=== PATIENT | female | born 1980 | race Caucasian/White ===

== ENCOUNTER → 2020-06-20 | Day surgery (SDC) | payer OTHER ==
[~2020-06-20] MED LIST: Bupivacaine 0.5%/EPINEPHrine 1:200,000 50 ML MDV ONE; Dexamethasone 4 MG/ML SDV ONE; Glycopyrrolate 0.2 MG/ML SDV ONE; Lactated Ringers 1,000 ML IV SCH; Lidocaine 1% 4 ML ONE; Lidocaine 1%/Sod Bicarbonate in NS 8.4% 1 ML Syringe IDERM PRN; Propofol 200 MG/20 ML SDV ONE; Sodium Chloride 0.9% 10 ML Syringe FLUSH PRN; diphenhydrAMINE 50 MG/ML SDV ONE; fentaNYL 100 MCG/2 ML SDV ONE
--- NOTE | 2020-06-20 11:45 | PCM.PRNOTE ---
- Free Text/Narrative Note: Date: 06/20/2020 Procedure: screening colonoscopy Endoscopist: Lokesh Galindo MD Findings: excellent prep. No polyps identified. Perhaps mild proctitis though I suspect what looked inflamed was related to minor scope trauma. Small anterior external hemorrhoid. Detailed Report: The patient was taken to the endoscopy suite and placed in left lateral decubitus position. Time out was performed and monitored anesthesia care initiated. Anus appeared normal except for a small anterior external hemorrhoid. Digital exam unremarkable. The colonoscope was inserted and advanced to the cecum. The appendiceal orifice was visualized. Prep was excellent. The scope was slowly withdrawn and mucosal surfaces carefully inspected. No polyps were identified. There appeared to be minor mucosal hyperemia at the distal sigmoid and rectum which looked more to be from scope trauma than anything else, but given history a sample of rectal mucosa was obtained with biopsy forceps. No significant hemorrhoidal disease appreciated. Air was suctioned prior to withdrawal of the scope. The patient tolerated this procedure well. Next, the small anterior external hemorrhoid was anesthetized with 5 cc 1% lidocaine with epinpehrine. Scissors were used to excise the hemorrhoid and overlying anoderm. Bleeding was minor and controlled with monopolar energy. The specimen was sent for pathology. The wound was closed with a single interrupted chronic gut suture, dressed with vasoline gauze, dry gauze and mesh panties.
--- NOTE | 2020-06-20 11:52 | PCM.PREANE ---
Preanesthetic Assessment - Procedure Proposed Procedure: Diagnostic Colonoscopy and Excision of external hemorrhoidal skin tag - Anesthesia/Transfusion/Family Hx Anesthesia History: Prior Anesthesia Without Reaction Family History of Anesthesia Reaction: No - Review of Systems General: No Symptoms Pulmonary: No Symptoms Cardiovascular: No Symptoms Gastrointestinal: No Symptoms Neurological: No Symptoms Other: Reports: Sinus Problem (Allergic Rhinitis, takes daily medications to control year round. ) - Physical Assessment NPO Status Date: 06/19/20 NPO Status Time: 18:00 Vital Signs: Last Vital Signs Temp 36.1 C 06/20/20 11:38 Pulse 61 06/20/20 11:38 Resp 12 06/20/20 11:38 BP 91/46 L 06/20/20 11:38 Pulse Ox 90 L 06/20/20 11:38 Height: 1.68 m Weight: 73.9 kg ASA Class: 2 Mental Status: Alert & Oriented x3 Airway Class: Mallampati = 2 Dentition: Reports: Normal Dentition Thyro-Mental Finger Breadths: 3 Mouth Opening Finger Breadths: 3 ROM/Head Extension: Full Lungs: Clear to Auscultation, Normal Respiratory Effort Cardiovascular: Regular Rate, Regular Rhythm - Allergies Allergies/Adverse Reactions: Allergies Allergy/AdvReac Type Severity Reaction Status Date / Time cat dander Allergy Anaphylactic Verified 06/20/20 10:12 Shock - Anesthesia Plan Pre-Op Medication Ordered: Other (Diphenhydramine 25 mg IV ) - Acknowledgements Anesthesia Type Planned: MAC Pt an Appropriate Candidate for the Planned Anesthesia: Yes Alternatives and Risks of Anesthesia Discussed w Pt/Guardian: Yes Pt/Guardian Understands and Agrees with Anesthesia Plan: Yes PreAnesthesia Questionnaire HEENT History: Reports: Allergic Rhinitis Cardiovascular History: Reports: None Respiratory History: Reports: Asthma Gastrointestinal History: Reports: None Genitourinary History: Reports: Other (See Below) Other Genitourinary History: dysuria 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 (See Below) Other OB/BYN History: abnormal uterine bleeding, menorrhagia, pelvic floor relaxation Musculoskeletal History: Reports: Other (See Below) Other Musculoskeletal History: right rib pain Neurological History: Reports: Other (See Below) Other Neuro History: dizziness, left sciatic pain Psychiatric History: Reports: Anxiety, Depression Endocrine/Metabolic History: Reports: None Hematologic History: Reports: None Immunologic History: Reports: None Oncologic (Cancer) History: Reports: None Dermatologic History: Reports: Other (See Below) Other Dermatologic History: hair loss - Infectious Disease History Infectious Disease History: Reports: None - Past Surgical History Head Surgeries/Procedures: Reports: None HEENT Surgical History: Reports: Naso-Sinus Surgery Cardiovascular Surgical History: Reports: None Respiratory Surgical History: Reports: None GI Surgical History: Reports: Colonoscopy Endocrine Surgical History: Reports: None Neurological Surgical History: Reports: None Musculoskeletal Surgical History: Reports: None Oncologic Surgical History: Reports: None - SUBSTANCE USE Tobacco Use Status *Q: Never Tobacco User Recreational Drug Use History: No - HOME MEDS Home Medications: Home Meds ALPRAZolam [Xanax] 0.5 - 1 mg PO DAILY PRN 06/19/20 [History] Albuterol Sulfate [Albuterol Sulfate HFA] 1 - 2 puff INH Q4H PRN 06/19/20 [History] Aspirin [Nabeel Chewable Aspirin] 81 mg PO DAILY 06/19/20 [History] Biotin 1 mg PO DAILY 06/19/20 [History] Cetirizine HCl [Zyrtec] 10 mg PO DAILY 06/19/20 [History] Cholecalciferol (Vitamin D3) [Vitamin D3] 2,000 unit PO DAILY 06/19/20 [History] Cyanocobalamin (Vitamin B-12) [Vitamin B-12] 1,000 mcg PO DAILY 06/19/20 [History] FLUoxetine [PROzac] 40 mg PO DAILY 06/19/20 [History] Ibuprofen 800 mg PO TID PRN 06/19/20 [History] Krill/[place]-3/Dha/Epa/Lipids [Krill Oil 300 mg Softgel] 1 cap PO DAILY 06/19/20 [History] Magnesium 250 mg PO DAILY 06/19/20 [History] Multivitamin 1 tab PO DAILY 06/19/20 [History] Phytonadione [Vitamin K] 100 mcg PO DAILY 06/19/20 [History] Vitamin A 2,400 mcg PO DAILY 06/19/20 [History] oxyCODONE 5 mg PO Q4H PRN #5 tab 06/20/20 [Rx] - CURRENT (IN HOUSE) MEDS Current Meds: Current Medications Lactated Ringer's (Ringers, Lactated) 1,000 mls @ 125 mls/hr IV ASDIRECTED RAFAEL Stop: 06/20/20 23:00 Last Admin: 06/20/20 09:50 Dose: 125 mls/hr Documented by: Lidocaine/Sodium Bicarbonate (Buffered Lidocaine 1% In Ns 8.4%) 0.25 ml IDERM ONETIME PRN PRN Reason: Prior to IV Start Stop: 06/20/20 18:00 Last Admin: 06/20/20 09:45 Dose: 0.25 ml Documented by: Sodium Chloride (Saline Flush) 10 ml FLUSH ASDIRECTED PRN PRN Reason: Keep Vein Open Stop: 06/20/20 18:00 Discontinued Medications Bupivacaine HCl/Epinephrine Bitart (Marcaine 0.5%/Epinephrine 1:200,000) Confirm Administered Dose 50 ml .ROUTE .STK-MED ONE Stop: 06/20/20 10:30 Dexamethasone (Decadron) Confirm Administered Dose 4 mg .ROUTE .STK-MED ONE Stop: 06/20/20 10:27 Dexamethasone (Decadron) Confirm Administered Dose 4 mg .ROUTE .STK-MED ONE Stop: 06/20/20 10:31 Diphenhydramine HCl (Benadryl) Confirm Administered Dose 50 mg .ROUTE .STK-MED ONE Stop: 06/20/20 10:30 Fentanyl (Sublimaze) Confirm Administered Dose 100 mcg .ROUTE .STK-MED ONE Stop: 06/20/20 10:28 Glycopyrrolate (Robinul) Confirm Administered Dose 0.2 mg .ROUTE .STK-MED ONE Stop: 06/20/20 10:47 Lidocaine HCl (Xylocaine-Mpf 1%) Confirm Administered Dose 4 mls @ as directed .ROUTE .STK-MED ONE Stop: 06/20/20 10:49 Propofol (Diprivan 20 Ml) Confirm Administered Dose 400 mg .ROUTE .STK-MED ONE Stop: 06/20/20 10:28 Propofol (Diprivan 20 Ml) Confirm Administered Dose 200 mg .ROUTE .STK-MED ONE Stop: 06/20/20 11:21
--- NOTE | 2020-06-20 11:53 | PCM48HPAN ---
Post Anesthesia Note - EVALUATION WITHIN 48HRS OF ANESTHETIC Vital Signs in Normal Range: Yes Patient Participated in Evaluation: Yes Respiratory Function Stable: Yes Airway Patent: Yes Cardiovascular Function Stable: Yes Hydration Status Stable: Yes Pain Control Satisfactory: Yes Nausea and Vomiting Control Satisfactory: Yes Mental Status Recovered: Yes Vital Signs: Last Vital Signs Temp 36.1 C 06/20/20 11:38 Pulse 61 06/20/20 11:38 Resp 12 06/20/20 11:38 BP 91/46 L 06/20/20 11:38 Pulse Ox 90 L 06/20/20 11:38 SP02 increased to 93% on room air, BP 100/57 with recheck. Mechel is comfortable and resting at this time.
== END | disposition home or self-care (01) ==
LOC: JD.SDS 09:24
PROVIDERS: ATTEND Surgery
DX: K62.89 Other specified diseases of anus and rectum (principal); K64.4 Residual hemorrhoidal skin tags; K52.9 Noninfective gastroenteritis and colitis, unspecified; J45.909 Unspecified asthma, uncomplicated; Z79.899 Other long term (current) drug therapy; Z98.890 Other specified postprocedural states; Z87.891 Personal history of nicotine dependence
CPT/HCPCS: 45380; 46999; J1100; J1200; J2704; J3010; J3490; J7120; 00811

== ENCOUNTER 2020-10-08 07:18 | Day surgery (SDC) | payer OTHER ==
--- NOTE | 2020-10-07 19:46 | PCM.PREANE ---
Preanesthetic Assessment - Procedure Proposed Procedure: Laparoscopic assisted vaginal hysterectomy, bilateral salpingectomy - Anesthesia/Transfusion/Family Hx Anesthesia History: Prior Anesthesia Without Reaction Family History of Anesthesia Reaction: No Transfusion History: No Prior Transfusion(s) Intubation History: Unknown - Review of Systems General: No Symptoms Pulmonary: No Symptoms Cardiovascular: No Symptoms Gastrointestinal: No Symptoms Neurological: No Symptoms Other: Reports: None - Physical Assessment NPO Status Date: 10/07/20 NPO Status Time: 21:30 Vital Signs: 139/66 67 99% RR 16 97.5 Height: 1.68 m Weight: 72.7 kg ASA Class: 2 Mental Status: Alert & Oriented x3 Airway Class: Mallampati = 2 Dentition: Reports: Normal Dentition Thyro-Mental Finger Breadths: 3 Mouth Opening Finger Breadths: 3 ROM/Head Extension: Full Lungs: Clear to Auscultation, Normal Respiratory Effort Cardiovascular: Regular Rate, Regular Rhythm - Lab Values: Labs reviewed and okay to proceed - Allergies Allergies/Adverse Reactions: Allergies Allergy/AdvReac Type Severity Reaction Status Date / Time cat dander Allergy Anaphylactic Verified 06/20/20 10:12 Shock - Blood Blood Available: Yes Product(s) Available: PRBC - Anesthesia Plan Pre-Op Medication Ordered: None - Acknowledgements Anesthesia Type Planned: General Anesthesia Pt an Appropriate Candidate for the Planned Anesthesia: Yes Alternatives and Risks of Anesthesia Discussed w Pt/Guardian: Yes Pt/Guardian Understands and Agrees with Anesthesia Plan: Yes PreAnesthesia Questionnaire HEENT History: Reports: Allergic Rhinitis Cardiovascular History: Reports: None Respiratory History: Reports: Asthma Gastrointestinal History: Reports: None Genitourinary History: Reports: Other (See Below) Other Genitourinary History: dysuria, stress incontinence 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 (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) Other OB/BYN History: abnormal uterine bleeding, menorrhagia, pelvic floor relaxation Musculoskeletal History: Reports: Other (See Below) Other Musculoskeletal History: right rib pain (resolved) Neurological History: Reports: Other (See Below) Other Neuro History: dizziness, left sciatic pain (resolved) Psychiatric History: Reports: Anxiety, Depression Endocrine/Metabolic History: Reports: None Hematologic History: Reports: None Immunologic History: Reports: None Oncologic (Cancer) History: Reports: None Dermatologic History: Reports: Other (See Below) Other Dermatologic History: hair loss - Infectious Disease History Infectious Disease History: Reports: None - Past Surgical History Head Surgeries/Procedures: Reports: None HEENT Surgical History: Reports: Naso-Sinus Surgery Cardiovascular Surgical History: Reports: None Respiratory Surgical History: Reports: None GI Surgical History: Reports: Colonoscopy Other GI Surgeries/Procedures: Hemorroidectomy Endocrine Surgical History: Reports: None Neurological Surgical History: Reports: None Musculoskeletal Surgical History: Reports: None Oncologic Surgical History: Reports: None - SUBSTANCE USE Tobacco Use Status *Q: Former Tobacco User Tobacco Use Within Last Twelve Months: Cigarettes Other Tobacco Use Within Last Twelve Months: quit 5 years ago Days Per Week of Alcohol Use: 3 Number of Drinks Per Day: 2 Total Drinks Per Week: 6 Recreational Drug Use History: No - HOME MEDS Home Medications: Home Meds ALPRAZolam [Xanax] 0.5 - 1 mg PO DAILY PRN 06/19/20 [History] Albuterol Sulfate [Albuterol Sulfate HFA] 1 - 2 puff INH Q4H PRN 06/19/20 [History] Aspirin [Nabeel Chewable Aspirin] 81 mg PO DAILY 06/19/20 [History] Biotin 1 mg PO DAILY 06/19/20 [History] Cetirizine HCl [Zyrtec] 10 mg PO DAILY 06/19/20 [History] Cholecalciferol (Vitamin D3) [Vitamin D3] 2,000 unit PO DAILY 06/19/20 [History] Cyanocobalamin (Vitamin B-12) [Vitamin B-12] 1,000 mcg PO DAILY 06/19/20 [History] FLUoxetine [PROzac] 40 mg PO DAILY 06/19/20 [History] Ibuprofen 800 mg PO TID PRN 06/19/20 [History] Krill/[place]-3/Dha/Epa/Lipids [Krill Oil 300 mg Softgel] 1 cap PO DAILY 06/19/20 [History] Magnesium 250 mg PO DAILY 06/19/20 [History] Multivitamin 1 tab PO DAILY 06/19/20 [History] - CURRENT (IN HOUSE) MEDS Current Meds: Current Medications Albuterol (Albuterol 0.083% 2.5 Mg/3 Ml Neb Soln) 2.5 mg NEB ONETIME PRN PRN Reason: asthma/preoperative Stop: 10/08/20 18:00 Lactated Ringer's (Ringers, Lactated) 1,000 mls @ 125 mls/hr IV ASDIRECTED RAFAEL Stop: 10/08/20 23:00 Lidocaine/Sodium Bicarbonate (Lidocaine 1%/Sod Bicarbonate In Ns 8.4% 1 Ml Syringe) 0.25 ml IDERM ONETIME PRN PRN Reason: Prior to IV Start Stop: 10/08/20 18:00 Sodium Chloride (Sodium Chloride 0.9% 10 Ml Syringe) 10 ml FLUSH ASDIRECTED PRN PRN Reason: Keep Vein Open Stop: 10/08/20 18:00
[~2020-10-08 07:18] MED LIST changes: +Albuterol 0.083% 2.5 MG/3 ML Neb Soln NEB PRN; -Bupivacaine 0.5%/EPINEPHrine 1:200,000 50 ML MDV ONE; +Dexamethasone 4 MG/ML 5 ML MDV ONE; -Dexamethasone 4 MG/ML SDV ONE; -Glycopyrrolate 0.2 MG/ML SDV ONE; -Lactated Ringers 1,000 ML IV SCH; -Lidocaine 1% 4 ML ONE; +Midazolam 1 MG/ML 2 ML SDV ONE; +Ondansetron 4 MG/2 ML SDV ONE; +Rocuronium 50 MG/5 ML Vial ONE; +ceFAZolin 1 GM Vial ONE; -diphenhydrAMINE 50 MG/ML SDV ONE; -fentaNYL 100 MCG/2 ML SDV ONE; +fentaNYL 250 MCG/5 ML SDV ONE
[2020-10-08] MEDS ORDERED: Bupivacaine 0.5% 30 ML SDV ONE (07:23)
[2020-10-08] MEDS ORDERED: Lidocaine 1% with EPINEPHrine 1:100,000 10 ML MDV ONE (07:23)
[2020-10-08] MEDS ORDERED: Sodium Chloride 0.9% 50 ML SDV ONE (07:23)
[2020-10-08] MEDS: Lactated Ringers 1,000 ML IV SCH ×2 (07:35→12:07)
[2020-10-08] MEDS ORDERED: Lactated Ringers 1,000 ML ONE (09:15)
[2020-10-08] MEDS ORDERED: ePHEDrine 50 MG/ML SDV ONE (09:31)
[2020-10-08] MEDS ORDERED: Glycopyrrolate 0.2 MG/ML SDV ONE ×2 (09:36→09:59)
[2020-10-08] MEDS ORDERED: Rocuronium 50 MG/5 ML Vial ONE (09:49)
[2020-10-08] MEDS ORDERED: Ketorolac 30 MG/ML SDV ONE (09:52)
[2020-10-08] MEDS ORDERED: Albuterol 6.7 GM Inhaler INH ONE (10:15)
[2020-10-08] MEDS ORDERED: HYDROmorphone 0.5 MG/0.5 ML Syringe ONE (10:36)
--- NOTE | 2020-10-08 10:58 | PCM.OPNOTE ---
- General Post-Op/Procedure Note Date of Surgery/Procedure: 10/08/20 Operative Procedure(s): Laparoscopic-assisted vaginal hysterectomy with bilateral salpingectomy Findings: Normal-appearing ovaries and tubes bilaterally. Uterus grossly normal in appearance with clear endometriosis lesions on the posterior lower uterine segment. Small amount of adhesions of the left broad ligament to the left posterior portion of the uterus. Normal-appearing liver, gallbladder, appendix and visualized portions of the intestines. Pre Op Diagnosis: Menorrhagia, dysmenorrhea, uterine fibroid Post-Op Diagnosis: Same Anesthesia Technique: General ET Tube Primary Surgeon: Jurgen Neal Anesthesia Provider: Ambar Abbott Supervisor Of Research: Arun Aj Reason Supervisor Of Research Was Necessary: Patient safety and reduction of morbidity and mortality Role of Supervisor Of Research: Use of laparoscopic instruments for portions of the case. Retraction for visualization. Pathology: Cervix, uterus and bilateral fallopian tubes Fluid Replacement, Intraop: 1,800 Output, Urine Amount: 400 EBL in mLs: 250 Complications: None Condition: Good Free Text/Narrative:: The patient was seen in the preoperative holding area and risks, benefits, indications, and alternatives of the procedure were reviewed with the patient and she desired to proceed with a laparoscopic assisted vaginal hysterectomy, bilateral salpingectomy, possible unilateral or bilateral salpingo-oophorectomy, possible ovarian cystectomy and possible total abdominal hysterectomy. Consents were reviewed. The patient was taken back to the OR and given general anesthesia with an endotracheal tube which was placed without difficulty. She was placed in dorsal lithotomy position using Yellofin stirrups. She was prepped and draped in normal sterile fashion. A Morales catheter was placed without difficulty. Attention was then turned to her umbilicus and it was injected with 0.5% Marcaine and a 5 mm stab incision was made with a scalpel and a Veress needle was then inserted through the incision. The gas was turned on, with an opening pressure of 5 mmHg. Pneumoperitoneum was continued until 15 mmHg pressure. A 5 mm trocar was then inserted under direct visualization through the incision without difficulty. Attention was then turned to the patient's right lower quadrant where an avascular space approximately intermediate between the ASIS and the umbilicus was identified. Local anesthetic was injected and a 5 mm incision was made with a scalpel. A 5 mm trocar was then inserted under direct visualization of the laparoscope. Attention was then turned to the left lower quadrant, where again an avascular portion of the abdominal wall was identified approximately intermediate between the ASIS and the umbilicus. Local anesthetic was injected and a scalpel was used to make a 5 mm incision. A 5 mm trocar was inserted under direct visualization with the laparoscope. Attention was then turned to the pelvis where the uterus was visualized and noted be normal in appearance with normal appearing bilateral fallopian tubes and normal-appearing bilateral ovaries. The posterior side of the uterus was noted to have some clear endometriosis lesions on the lower uterine segment of the uterus. There is also a small amount of scarring between the left broad ligament and the posterior portion of the uterus. The atraumatic grasper was then removed from the right lower trocar and a Enseal vessel sealing device was introduced and was used to transect the right fallopian tube and round ligament. The mesosalpinx connecting the right fallopian tube was transected from the ovary and underlying tissue. The right round ligament was then transected using the Enseal vessel sealing device. The utero-ovarian ligament was then transected using the Enseal vessel sealing device. The right side of the uterus and broad ligament were then transected using the Enseal vessel sealing device until the level of the uterovesical peritoneal reflection. This was repeated on the patient's left side. The fallopian tube was transected from the mesosalpinx using the Enseal vessel sealing device. The utero-ovarian ligament was then transected using Enseal vessel sealing device. Additional transection of the scar tissue from the broad ligament and to the left ovary was transected using the Enseal vessel sealing device. The left round ligament was transected using Enseal vessel sealing device and the broad ligament was transected to the level of the uterovesical peritoneal reflection. The pelvis was then inspected for hemostasis at this time and hemostasis was noted. All instruments were removed from the abdomen. Attention was then turned to the patient's perineum where a weighted speculum was placed into the vagina and a [place] retractor was used to visualize the cervix. The cervix was grasped with a double-tooth tenaculum. The cervical reflection point was then injected circumferentially with 0.25% lidocaine with epinephrine. The cervix was then circumferentially incised with a scalpel. The bladder was then dissected off the pubovesical cervical fascia anteriorly with Metzenbaum scissors. The same procedure was performed posteriorly and the posterior cul-de-sac was entered sharply without difficulty using Metzenbaum scissors. At this point, an Enseal vessel sealing device was placed over the uterosacral ligaments on the patient's left side. These were cauterized and ligated with the device. This was repeated on the patient's right side. Hemostasis was assured. The cardinal ligaments were then clamped on both sides using the Enseal vessel sealing device, cauterized and transected with the device. The anterior cul-de-sac was then able to be visualized and entered using sharp dissection with Metzenbaum scissors. The uterine artery on the bilateral sides and the remainder of the broad ligament were then serially clamped with the Enseal vessel sealing device, cauterized and transected with the device. Excellent hemostasis was noted. The cervix and uterus was able to be delivered at this time. The posterior vaginal cuff was closed with running locked sutures of 0 Monocryl. The vaginal cuff was then closed in a horizontal fashion using running locked sutures with 0 Monocryl suture. All instruments were removed from the vagina. Attention was then turned to the abdomen where a laparoscope was inserted and was used to check for hemostasis. Hemostasis was noted at this time. The case was complete at this time. The gas was then evacuated from the peritoneum and trocars removed. These were closed using 4-0 Monocryl suture and Dermabond. The patient was awoken from general anesthesia and taken to the PACU for recovery in stable condition. She will be discharged to home once she is able to meet all postoperative milestones including tolerating small amount of oral intake and liquids, ambulate without difficulty, her pain controlled with oral medications and able to void without difficulty. She will follow-up in the clinic in 2 weeks or earlier as needed. Sponge, lap, needle, and instrument counts were correct x 2. Images from the case IMG 002: Right lobe of the liver and gallbladder are grossly normal in appearance. IMG 003: Left lobe of the liver and visualized portion of the stomach that were grossly normal in appearance. IMG 004: Anterior cul-de-sac without any evidence of endometriosis or lesions present. IMG 005: Uterus with right fallopian tube and small portion of the ovary visualized and were grossly normal in appearance. IMG 006: Additional image of the right fallopian tube that was grossly normal in appearance. Additional view of the right ovary grossly normal in appearance. IMG 007: Small portion of the fallopian tube and ovary grossly normal in appearance. On the posterior side of the uterus there is areas of clear cyst structures that appear to be consistent with endometriosis lesion IMG 008: Additional view of the posterior side of the uterus with the clear cystic area suspected to be endometriosis. Small area on the ovary with questionable endometriosis present. IMG 009: Additional view of small clear cystic areas consistent with endometriosis IMG 010: Left pelvic sidewall with hemostasis noted. Ovary present in the inferior portion of the imaging grossly normal in appearance. IMG 011: Vaginal cuff with good hemostasis IMG 012: Right pelvic sidewall with good hemostasis noted. Ovary in the right lateral portion of the image grossly normal in appearance IMG 013: Appendix grossly normal in appearance. Jurgen Neal MD 11:08 AM 10/08/2020
[2020-10-08] MEDS ORDERED: Ondansetron 4 MG/2 ML SDV IVPUSH PRN (11:05)
[2020-10-08] MEDS ORDERED: HYDROmorphone 0.5 MG/0.5 ML Syringe IVPUSH PRN (11:05)
[2020-10-08] MEDS ORDERED: fentaNYL 100 MCG/2 ML SDV IVPUSH PRN (11:05)
--- NOTE | 2020-10-08 11:07 | PCM.POSTAN ---
POST ANESTHESIA ASSESSMENT - MENTAL STATUS Mental Status: Alert Free Text/Narrative:: Drowsy - VITAL SIGNS Vital Signs: Last Vital Signs Temp 97.5 F 10/08/20 07:15 Pulse 67 10/08/20 07:15 Resp 16 10/08/20 07:15 BP 139/66 10/08/20 07:15 Pulse Ox 97 10/08/20 07:53 1054: 121/40 HR 60 RR 13 Sat 100% 97.6 - RESPIRATORY Respiratory Status: Respiratory Rate WNL, Airway Patent, O2 Saturation Stable - CARDIOVASCULAR CV Status: Pulse Rate WNL, Blood Pressure Stable - GASTROINTESTINAL GI Status: No Symptoms - POST OP HYDRATION Hydration Status: Adequate & Stable - OBSERVATIONS Free Text/Narrative:: Patient denies nausea and pain at this time.
== END 2020-10-08 14:27 | disposition home or self-care (01) ==
LOC: JD.SDS 07:18
PROVIDERS: ATTEND Obstetrics & Gynecology
DX: D25.1 Intramural leiomyoma of uterus (principal); K66.0 Peritoneal adhesions (postprocedural) (postinfection); N80.0 Endometriosis of uterus; N72 Inflammatory disease of cervix uteri; J45.909 Unspecified asthma, uncomplicated; Z91.048 Other nonmedicinal substance allergy status; Z79.899 Other long term (current) drug therapy; Z79.82 Long term (current) use of aspirin; Z98.890 Other specified postprocedural states; Z87.891 Personal history of nicotine dependence
CPT/HCPCS: 36415; 58552; 81003; 81025; 85025; 86850; 86900; 86901; 94640; A9270; J0690; J1100; J1885; J2250; J2370; J2405; J2704; J2710; J3010; J3490; J7120; 00944; J1170